=== PATIENT | female | born 1975 | race Caucasian/White ===

== ENCOUNTER 2017-12-26 05:20 | Day surgery (SDC) | payer OTHER ==
[~2017-12-26 05:20] MED LIST: ASPIR 8181 MG; CARDIZEM LA120 MG PO; CIPRO500 MG PO; CLONAZEPAM0.5 MG PO; DOLOGESIC CAPLE1 TAB PO; ENALAPRIL MALE2.5 MG PO; ENALAPRIL MALEA20 MG PO; IBUPROFEN800 MG PO; IMODIUM A-D2 MG PO; LEVSIN/SL0.125 MG PO; NORVASC5 MG; ORPH100T PO; PANADOL EXTRA500 MG PO; PEPCID40 MG PO; PERCOCET 5/3251 TAB PO; RESTORIL30 M1 PO; SENOKOT-S TABL1 EACH PO; SYNTHROID137 MCG PO; TYLENOL-CODEINE1 TAB PO; WELLBUTRIN XL300 MG PO; ZOFRAN8 MG PO; [UNRECOGNIZED DRUG - OTHER] IJ
== END 2017-12-26 13:40 | disposition home or self-care (01) ==
LOC: CIR.AMB 05:20
DX: M24.521 Contracture, right elbow (principal)

== ENCOUNTER 2018-09-27 08:58 | Day surgery (SDC) | payer OTHER ==
[~2018-09-27 08:58] MED LIST changes: +AVAPRO300 MG PO; +BREO; +GABAPENTIN600 MG PO; +TIZANIDINE HCL2 M1 PO; +[UNRECOGNIZED DRUG - OTHER]
== END 2018-09-27 17:15 | disposition home or self-care (01) ==
LOC: CIR.AMB 08:58
DX: G56.21 Lesion of ulnar nerve, right upper limb (principal); T84.84XA Pain due to internal orthopedic prosthetic devices, implants and grafts, initial encounter; M13.821 Other specified arthritis, right elbow

== ENCOUNTER 2019-09-23 10:00 | Day surgery (SDC) | payer OTHER ==
[~2019-09-23 10:00] MED LIST changes: +PROAIR; -[UNRECOGNIZED DRUG - OTHER]
[2019-10-18] MEDS ORDERED: BUPROPION HCL200 M1 PO (10:34)
[2019-10-18] MEDS ORDERED: HORIZANT600 MG PO (10:35)
[2019-10-18] MEDS ORDERED: APRESOLINE 10MG10 MG PO (10:35)
== END 2019-09-23 15:00 | disposition home or self-care (01) ==
LOC: AMB-ENDOS 10:00
DX: K59.09 Other constipation (principal); K64.8 Other hemorrhoids; Z12.11 Encounter for screening for malignant neoplasm of colon

== ENCOUNTER 2019-10-24 06:00 | Day surgery (SDC) | payer OTHER ==
[~2019-10-24 06:00] MED LIST changes: +APRESOLINE 10MG10 MG PO; +BUPROPION HCL200 M1 PO; +HORIZANT600 MG PO
== END 2019-10-24 10:35 | disposition home or self-care (01) ==
LOC: CIR.AMB 06:00
DX: M75.121 Complete rotator cuff tear or rupture of right shoulder, not specified as traumatic (principal); M75.41 Impingement syndrome of right shoulder; M75.21 Bicipital tendinitis, right shoulder

== ENCOUNTER 2022-05-03 14:21 | Outpatient (CLI) | payer OTHER | END 2022-05-03 14:29 | disposition home or self-care (01) | LOC: RAD 14:21 | PROVIDERS: ATTEND Orthopaedic Surgery | DX: M19.011 Primary osteoarthritis, right shoulder (principal); M19.021 Primary osteoarthritis, right elbow ==

== ENCOUNTER → 2022-06-23 | Day surgery (SDC) | payer OTHER ==
[~2022-06-23] VITALS: Ht 154.9 cm; Wt 72.6 kg
[~2022-06-23] MED LIST changes: +ALBUTERO; +BACLOFEN20 MG PO; +DILTI PO; +IRBESARTAN-HCT1 EAC1 PO; +SPIRIVA IH; +SYMBIC IH; +SYNTHROID125 MCG PO; +VITAMIN D PO
== END | disposition home or self-care (01) ==
LOC: ADM 06-20 11:45 → CIR.AMB 11:45
PROVIDERS: ATTEND Orthopaedic Surgery
DX: G56.21 Lesion of ulnar nerve, right upper limb (principal); Z20.822 Contact with and (suspected) exposure to COVID-19; I10 Essential (primary) hypertension; J45.909 Unspecified asthma, uncomplicated; G43.909 Migraine, unspecified, not intractable, without status migrainosus; M79.7 Fibromyalgia

== ENCOUNTER 2025-04-04 05:30 | Day surgery (SDC) | payer OTHER ==
[2025-03-28 10:17] VITALS: BP 128/84
[~2025-04-04] VITALS: Ht 154.9 cm; Wt 77.1 kg
[~2025-04-04 05:30] MED LIST changes: +VENLAFAXINE HCL75 M2 PO; +ZYRTEC10 M3 PO
[2025-04-04] MEDS ORDERED: CEFTRIAXONE SODIUM 2,000 MG VIAL ONE ×2 (06:43→07:02)
[2025-04-04] MEDS ORDERED: METRONIDAZOLE/SODIUM CHLORIDE 500 MG/100 ML PIGGYBACK IV ONE ×2 (06:44→07:02)
[2025-04-04] MEDS ORDERED: BUPIVACAINE HCL/Mpf 0.5% 10ML VIAL ONE (06:54)
[2025-04-04] MEDS ORDERED: LIDOCAINE HCL 1%/EPINEPHRINE 20ML VIAL IJ ONE (06:54)
[2025-04-04] MEDS ORDERED: POVIDONE-IODINE 118 ML BOTT TOP ONE (06:54)
[2025-04-04] MEDS ORDERED: DIBUCAINE 30 GM TUBE ONE (06:54)
[2025-04-04] MEDS ORDERED: HEMOSTATIC MATRIX 1 KIT KIT TOP ONE (06:54)
[2025-04-04] MEDS ORDERED: PERCOCET 5-3251 EACH PO (08:14)
[2025-04-04] MEDS ORDERED: COLACE100 MG PO (08:14)
[2025-04-04] MEDS ORDERED: NEURONTIN300 MG PO (08:14)
== END 2025-04-04 19:15 | disposition home or self-care (01) ==
LOC: CIR.AMB 05:30
PROVIDERS: ATTEND Surgery
DX: K64.4 Residual hemorrhoidal skin tags (principal); K64.8 Other hemorrhoids

== ENCOUNTER 2025-04-06 09:50 | Emergency (ER) | payer OTHER ==
[~2025-04-06] VITALS: Ht 154.9 cm; Wt 77.1 kg
[~2025-04-06 09:50] MED LIST changes: +COLACE100 MG PO; +NEURONTIN300 MG PO; +PERCOCET 5-3251 EACH PO
[2025-04-06] MEDS ORDERED: HYDRALAZINE HCL50 MG PO (10:06)
[2025-04-06] MEDS ORDERED: AMITRIPTYLINE H10 MG PO (10:08)
== END 2025-04-06 10:44 | disposition home or self-care (01) ==
LOC: ER 09:54
DX: Z46.6 Encounter for fitting and adjustment of urinary device (principal); Z98.890 Other specified postprocedural states; I10 Essential (primary) hypertension